=== PATIENT | male | born 1965 | race Caucasian/White ===

== ENCOUNTER 2024-03-29 05:40 | Day surgery (SDC) | payer OTHER ==
[2024-03-26 08:02] VITALS: BP 152/82
[~2024-03-29] VITALS: Ht 172.7 cm; Wt 70.5 kg
[~2024-03-29 05:40] MED LIST: CIALIS10 MG PO; LACTATED RINGER'S 1,000 ML IV SCH; LIPITOR10 MG
[2024-03-29 06:11] VITALS: BP 154/78
[2024-03-29] MEDS ORDERED: DEXAMETHASONE SOD PHOS 4 MG/ML VIAL ONE (06:33)
[2024-03-29] MEDS ORDERED: METOCLOPRAMIDE HCL 10 MG/2 ML SDV ONE (06:33)
[2024-03-29] MEDS ORDERED: LACTATED RINGER'S 1,000 ML IV ONE (06:33)
[2024-03-29] MEDS ORDERED: ondansetron HCL 4 MG/2 ML VIAL ONE (06:33)
[2024-03-29] MEDS ORDERED: KETOROLAC TROMETHAMINE 30 MG/ML VIAL ONE (06:33)
[2024-03-29] MEDS ORDERED: propofoL 200 MG/20 ML VIAL ONE (06:33)
[2024-03-29] MEDS ORDERED: fentaNYL citrate 100 MCG/2 ML VIAL ONE (06:33)
[2024-03-29] MEDS ORDERED: MIDAZOLAM HCL 2 MG/2 ML VIAL ONE (06:34)
[2024-03-29] MEDS ORDERED: FAMOTIDINE 20 MG/ 2 ML VIAL ONE (06:34)
[2024-03-29] MEDS ORDERED: LIDOCAINE HCL 1% 30 ML SDV ONE (06:56)
[2024-03-29] MEDS ORDERED: HEParin SOD (PORCINE) 5,000 UNIT/0.5 ML SYR SUB-Q SCH (07:00)
[2024-03-29] MEDS ORDERED: CEFAZOLIN SODIUM 2 GM/20 ML SYR IV SCH (07:00)
[2024-03-29] MEDS ORDERED: IBLOOD GLUCOSE TEST STRIP 1 EA TEST VI PRN ×2 (07:00→08:30)
[2024-03-29] MEDS ORDERED: LIDOCAINE HCL 1% 5 ML SDV INJ ONE (07:00)
--- NOTE | 2024-03-29 07:22 | NUR ---
FREELANCE WRITER AND DR OROPEZA HAS BEEN IN TO TALK AND MARY PT.
[2024-03-29] MEDS ORDERED: ATROPINE SULFATE 1 MG/ML VIAL ONE (07:55)
[2024-03-29] MEDS ORDERED: METOCLOPRAMIDE HCL 10 MG/2 ML SDV IV PRN (08:30)
[2024-03-29] MEDS ORDERED: PROCHLORPERAZINE EDISYLATE 10 MG/2 ML VIAL IV PRN ×2 (08:30→09:15)
[2024-03-29] MEDS ORDERED: MORPHINE SULFATE 10 MG/ML VIAL IV PRN (08:30)
[2024-03-29] MEDS ORDERED: droPERidol 5 MG/2 ML VIAL IV PRN (08:30)
[2024-03-29] MEDS ORDERED: ondansetron HCL 4 MG/2 ML VIAL IV PRN ×2 (08:30→09:15)
[2024-03-29] MEDS ORDERED: NALOXONE HCL 0.4 MG SYR IV PRN ×2 (08:30→09:15)
[2024-03-29] MEDS ORDERED: fentaNYL citrate 50 MCG/ML SDV IV PRN (08:30)
[2024-03-29] MEDS ORDERED: HYDROCODONE/ACETA 5/325 TAB PO PRN (09:15)
[2024-03-29] MEDS ORDERED: HYDROmorphone HCL 1 MG/ML SYR IV PRN (09:15)
--- NOTE | 2024-03-29 09:15 | NUR ---
03/29/24 0915 Ann,Radha 0905 PT ARRIVED TO PACU ON 10L VIA MASK, O2 DECREASED TO 6L. PT ASLEEP AND CHIN LIFT USED OFF AND ON TO MAINTAIN AIRWAY. RESP EVEN AND UNLABORED. 0911 PT WOKE TO TACTILE STIMULI AND STARTS TO SIT UP IN BED, PT ENCOURAGED TO REST AND O2 MASK REMOVED. PT DENEIS NAUSEA AND PAIN, "JUST SLEEPY." PT RESTING WITH EYES CLOSED, HOB INCREASED.
--- NOTE | 2024-03-29 09:35 | NUR ---
AT BEDSIDE. DRINKING WATER JELLO AND CRACKERS GIVEN.
[2024-03-29 09:36] VITALS: BP 146/83
--- NOTE | 2024-03-29 10:16 | NUR ---
0958 TOOK PAIN MEDICINE AFTER EATING CRACKERS AND JELLO. RATES PAIN 07/22. AMB HALLWAY AND TO BR VOIDS 200MLS DARK URINE. WANTS TO GET DRESSED. IN ROOM.
--- NOTE | 2024-03-29 12:52 | OR ---
[facility] [address], [place] [address] Signed DATE OF OPERATION: 03/29/2024 SURGEON: Elvis Oropeza MD PREOPERATIVE DIAGNOSIS: Reducible right inguinal hernia. POSTOPERATIVE DIAGNOSIS: Reducible right direct inguinal hernia. PROCEDURE: Right Eagle onlay mesh inguinal herniorrhaphy. ESTIMATED BLOOD LOSS: None. INDICATIONS: Kimberlee is a 58-year-old gentleman, asked to see me for his symptomatic, but reducible right inguinal hernia. He said it has been there for at least six years. 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 He said that was pretty stressful. He decided to switch over to a local [employer] company. He said that is much better. He said as soon he moves or stands in any way, his hernia pops out. He can hear air bubbling through the area. He had been to his primary care provider. He was asked to see me as a local general surgeon on-call. He did have an ultrasound through his primary care provider and it showed his right groin hernia with fat and bowel in the groin. It was reducible during the ultrasound as well. On physical exam, it is very easy to see and reduce this hernia in the right groin. In the office, I gave Kimberlee a brochure on hernias. We looked at it page by page. He understands the nature of an inguinal hernia. We discussed the difference between a primary suture repair and a mesh repair. He understands this would be a day surgery. There is risk including, but not limited to bleeding, infection, scarring, change in contour of the skin, damage to the nerves, ischemic orchitis, recurrent hernias and chronic pain. He had expressed understanding and wished to proceed. PROCEDURE IN DETAIL: I met with Kimberlee and his friend, Marlena in our preop area along with our nurse. We all were able to easily identify the hernia in the right groin and marked that appropriately. After this, Kimberlee was taken to the operating room and placed in the supine position under general LMA anesthesia. He was given preoperative antibiotics along with subcutaneous Lovenox. SCDs were utilized. He was prepped and draped in the Electronically Signed By: ELVIS OROPEZA MD 03/29/24 1252 PATIENT NAME: KIMBERLEE BUTTERFIELD OPERATIVE REPORT DATE OF : 69 REPORT #: [id number] PHYSICIAN: ELVIS OROPEZA MD PCP: FREYA FERMIN PA-C REPORT IS CONFIDENTIAL AND NOT TO BE RELEASED WITHOUT AUTHORIZATION [facility] [address], [place] [address] Signed usual sterile fashion. After this, a standard oblique incision was made in the right groin and carried down through the tissue bluntly and with the cautery. We opened up the external oblique fascia along its length and developed medially and laterally. The hypogastric and the lingual nerves were visualized and protected throughout the case. We elevated the cord structures at the pubic tubercle with the help of the [place] drain. On inspection, he had a small to moderate size, but reducible direct inguinal hernia. We carefully examined the cord structures on the anteromedial side at the level of deep ring. He had no indirect component. We used a 2-0 PDS running suture at the pubic tubercle to the deep ring to imbricate his direct space and therefore an imbricate the direct inguinal hernia. After this, we cut a piece of flat Prolene mesh to fit his groin and a slit was made in the mesh to accommodate the cord structures at the level of deep ring. We held in place medially laterally with help of running #1 Prolene suture. We did not suture to about 1 cm section on the mesh cephalad to the deep ring to allow the nerves to pass without any constriction. This gave excellent coverage of direct and indirect spaces. There was no undue tension on the mesh of the cord structures at the level of the deep ring. After this, we injected local anesthetic into the operative field. The wound was irrigated and suctioned out until clear. We closed the external oblique fascia over the repair with a running 2-0 PDS suture. We then reapproximated Corrina's fascia with a running 3-0 Monocryl suture. The dermis was reapproximated with interrupted 3-0 subcuticular Monocryl sutures. The skin edges were reapproximated with a running 5-0 fast absorbing plain gut suture. Dry gauze and tape was then applied. Kimberlee was awakened from his anesthesia, extubated in the OR, and taken to recovery room in stable condition. Elvis Oropeza MD ALB/MODL /[id number] cc: MERA Burkett Patient Chart Elvis Oropeza MD Electronically Signed By: ELVIS OROPEZA MD 03/29/24 1252 PATIENT NAME: KIMBERLEE BUTTERFIELD OPERATIVE REPORT DATE OF : 69 REPORT #: [id number] PHYSICIAN: ELVIS OROPEZA MD PCP: FREYA FERMIN PA-C REPORT IS CONFIDENTIAL AND NOT TO BE RELEASED WITHOUT AUTHORIZATION [address] [facility] [place], [place] [address] Signed Copies: ELVIS OROPEZA MD ~ Electronically Signed By: ELVIS OROPEZA MD 03/29/24 1252 PATIENT NAME: KIMBERLEE BUTTERFIELD Dariana OPERATIVE REPORT DATE OF : 69 REPORT #: [id number] PHYSICIAN: ELVIS OROPEZA MD PCP: FREYA FERMIN PA-C REPORT IS CONFIDENTIAL AND NOT TO BE RELEASED WITHOUT AUTHORIZATION
[2024-03-29] MEDS ORDERED: SEVOFLURANE 250 ML BTL INH ONE (15:40)
== END 2024-03-29 10:35 | disposition home or self-care (01) ==
LOC: DS 05:40
PROVIDERS: ATTEND Colon & Rectal Surgery
PROC: 0YU50JZ Supplement Right Inguinal Region with Synthetic Substitute, Open Approach (ICD-10-PCS; principal; 2024-03-29 07:30)
DX: K40.90 Unilateral inguinal hernia, without obstruction or gangrene, not specified as recurrent (principal); I10 Essential (primary) hypertension; F17.210 Nicotine dependence, cigarettes, uncomplicated; Z79.899 Other long term (current) drug therapy
CPT/HCPCS: 00830; C1781; J0461; J0690; J1100; J1644; J1885; J2250; J2405; J2704; J2765; J3010; J7121